=== PATIENT | male | born 1995 | race Two or more races ===

== ENCOUNTER 2017-11-01 23:54 | Emergency (ER) | payer SELFPAY ==
[~2017-11-01] VITALS: Ht 185.4 cm; Wt 81.6 kg
[~2017-11-01 23:54] MED LIST: QUETIAPINE FUMA25 MG ORAL; SUBOXONE 8 MG-1 EAC2 SL
[2017-11-02 01:30] VITALS: BP 131/82
[2017-11-02 01:33] LABS: EOSINOPHILS % (AUTO) 1.5 % (0.0-3.0); HEMATOCRIT 45.1 % (42.0-52.0); HEMOGLOBIN 15.9 G/DL (14.2-18.0); LYMPHOCYTES % (AUTO) 32.8 % (20.0-45.0); MEAN CORPUSCULAR VOLUME 90 FL (80-99); MONOCYTES % (AUTO) 10.5 % (1.0-10.0); NEUTROPHILS % (AUTO) 54.3 % (45.0-75.0); PLATELET COUNT 191 K/UL (150-450); RED CELL DISTRIBUTION WIDTH 11.4 % (11.6-14.8)
[2017-11-02 01:49] LABS: ANION GAP 6 mmol/L (5-15); BLOOD UREA NITROGEN 18 mg/dL (7-18); CALCIUM 8.8 MG/DL (8.5-10.1); CARBON DIOXIDE 32 MMOL/L (21-32); CHLORIDE 102 MMOL/L (98-107); CREATININE 1.2 MG/DL (0.55-1.30); POTASSIUM 3.4 MMOL/L (3.5-5.1); SODIUM 140 MMOL/L (136-145)
[2017-11-02 01:54] LABS: ALANINE AMINOTRANSFERASE 23 U/L (12-78); ALBUMIN 4.3 G/DL (3.4-5.0); ALBUMIN/GLOBULIN RATIO 1.2 (1.0-2.7); ALKALINE PHOSPHATASE 66 U/L (46-116); ASPARTATE AMINO TRANSFERASE 25 U/L (15-37); BILIRUBIN,TOTAL 0.5 MG/DL (0.2-1.0)
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
[2017-11-02 03:30] VITALS: BP 128/79
[2017-11-02] MEDS ORDERED: DiphenhydrAMINE 50mg/ml Inj IM ONE (05:15)
[2017-11-02] MEDS ORDERED: Haloperidol 5mg/ml Inj IM ONE (05:15)
[2017-11-02 05:30] VITALS: BP 135/82
[2017-11-02 06:55] VITALS: BP 135/82
== END 2017-11-02 06:55 ==
LOC: EDBD 23:54 → EMR 11-02 00:20
DX: F91.9 Conduct disorder, unspecified (principal); S60.221A Contusion of right hand, initial encounter; Y04.2XXA Assault by strike against or bumped into by another person, initial encounter; Y92.9 Unspecified place or not applicable; R45.851 Suicidal ideations; F29 Unspecified psychosis not due to a substance or known physiological condition; F31.9 Bipolar disorder, unspecified; F11.10 Opioid abuse, uncomplicated
CPT/HCPCS: 36415; 73130; 80053; 80307; 85025; 96372; 99284; G0480; J1200; J1630; 80329